=== PATIENT | female | born 1945 | race Caucasian/White ===

== ENCOUNTER 2018-03-08 12:45 | Inpatient (IN) | payer MEDICARE ==
[~2018-03-08] VITALS: Ht 152.4 cm; Wt 51.4 kg
--- NOTE | 2018-03-08 16:40 | NUR ---
RECEIVED PATIENT TO UNIT VIA AMBULANCE FROM [facility], ALERT, CALM, CONFUSED, AMBULATORY, CONTINENT OF B/B. SON, ELIS, ARRIVED [id number] THEREAFTER AND PROVIDED PATIENT'S HX. SON ELIS IS POA. PASSWORD ESTABLISHED "MARJAN". VS OBTAINED AND PATIENT ASSISTED TO DAYROOM. REDNESS NOTED TO BILATERAL ELBOWS AND HIPS. SON STATED THAT REDNESS WAS CAUSED BY PATIENT'S CONSTANT SQUIRMING IN BED AT OTHER FACILITY. SURGICAL INCISIONS NOTED TO MIDLINE OF LOWER ABDOMEN AND BILATERAL SIDES OF ABD. INCISION EDGES WELL-APPROXIMATED AND CLOSED WITH NO DRAINAGE OR S/S INFECTION.
[2018-03-08] MEDS ORDERED: ACETAMINOPHEN325 MG PO (17:47)
[2018-03-08] MEDS ORDERED: DONEPEZIL HCL10 MG PO (17:48)
[2018-03-08] MEDS ORDERED: LOVENOX30 MG/0.3 SC (17:53)
[2018-03-08] MEDS ORDERED: LEXAPRO20 MG PO (17:53)
[2018-03-08] MEDS ORDERED: HALDOL5 MG/ML IM (17:56)
[2018-03-08] MEDS ORDERED: DILAUDID INJ2 MG/ML IV (17:58)
[2018-03-08] MEDS ORDERED: ONDANSETRON4 MG/2 M3 IV (18:01)
[2018-03-08] MEDS ORDERED: ULTRAM50 MG PO (18:04)
[2018-03-08] MEDS ORDERED: ORA RELIEF177 ML PO (18:04)
[2018-03-08 18:20] VITALS: BP 105/66; BMI 22.2
[2018-03-08 20:00] VITALS: BP 140/55
--- NOTE | 2018-03-09 04:48 | NUR ---
B) Patient is alert and oriented to self , restless and agitated, wanders and badgers staff, defiant at times, I) Administered scheduled medications as ordered, redirected as needed, PRN Haldol 2 mg Im given for anxiety at 23:05 R) Mediation compliant, sleeping no in her bed, P) Continue plan of care.
[2018-03-09 07:51] LABS: ALBUMIN 3.3 g/dL (3.4-5.0); ALKALINE PHOSPHATASE 60 U/L (46-116); ALT (SGPT) 32 U/L (10-68); BILIRUBIN - TOTAL 0.46 mg/dL (0.2-1.3); CALC OSMOLALITY 285 mosm/kg (275-300); CALCIUM 8.6 mg/dL (8.5-10.1); CARBON DIOXIDE 23.1 mmol/L (21.0-32.0); CHLORIDE - SERUM 105 mmol/L (98-107); CHOLESTEROL, TOTAL 154 mg/dL (0-200); CREATININE - SERUM 0.7 mg/dL (0.6-1.3); HDL CHOLESTEROL 39 mg/dL (32-96); LDL CHOLESTEROL 88 mg/dL (0-100); LDL-HDL RATIO 2.3 ratio (1.5-3.5); POTASSIUM - SERUM 3.1 mmol/L (3.5-5.1); PROTEIN - SERUM 6.8 g/dL (6.4-8.2); SODIUM 143 mmol/L (136-145); THYROID STIMULATING HORMONE 0.47 uIU/mL (0.36-3.74); TRIGLYCERIDE 136 mg/dL (30-200); UREA NITROGEN 22 mg/dL (7-18); eGFR NON AFRICAN AMERICAN 87 mL/min (90-120)
[2018-03-09 07:51] LABS: EOSINOPHILS 7.1 % (0-7); HEMATOCRIT 40.2 % (36.0-48.0); HEMOGLOBIN 13.5 g/dL (12-16); IMMATURE GRANULOCYTES 1.2 % (0-5); LYMPHOCYTES 26.8 % (15-50); MCH 30.5 pg (26.0-34.0); MCHC 33.6 g/dL (31.0-37.0); MEAN PLATELET VOLUME 9.4 fL (7.4-10.4); MONOCYTES 11.1 % (2-11); NEUTROPHILS 52.8 % (40-80); PLATELET COUNT 380 10x3/uL (130-400); RBC 4.42 10x6/uL (4.00-5.40); RDW 13.1 % (11.5-14.5); WBC 9.2 10x3/uL (4.8-10.8)
[2018-03-09 08:16] LABS: GLUCOSE 69 mg/dL (74-106)
[2018-03-09 08:35] VITALS: BP 138/63
--- NOTE | 2018-03-09 12:27 | NUR ---
B) The patient is awake, she is confused. She knows her name, knows she is in the hospital. She is quiet. She has not tried to elope. I) Provide prescribed meds. Redirect as needed. R) The patient is calm and quiet, she ambulates independently. P) Continue POC.
[2018-03-09 13:50] VITALS: BMI 22.2
[2018-03-09 18:10] LABS: APPEARANCE CLEAR (CLEAR); BILIRUBIN NEGATIVE (NEGATIVE); COLOR YELLOW (YELLOW); GLUCOSE NEGATIVE (NEGATIVE); KETONE SMALL mg/dL (NEGATIVE); NITRITE NEGATIVE (NEGATIVE); PROTEIN NEGATIVE (NEGATIVE); UROBILINOGEN NORMAL (NORMAL)
[2018-03-09 18:11] LABS: BACTERIA FEW /hpf (NONE SEEN); EPITHELIAL CELLS 0-5 /hpf (0-5); RED CELLS - URINE 0-5 /hpf (0-5); WHITE CELLS - URINE 0-5 /hpf (0-5)
[2018-03-09 19:59] VITALS: BP 141/97
--- NOTE | 2018-03-09 21:00 | NUR ---
PATIENT IS VERY RESTLESS, COMES UP TO NURSE'S STATION REPEATEDLY FOR VARIOUS REASONS ( TIME, MAGAZINE, MEDS, HOUSESHOES). TAKES MEDS WELL, NO ADVERSE REACTION NOTED. WILL FOLLOW POC
[2018-03-10 06:13] LABS: VITAMIN D 25 HYDROXY 28.1 ng/mL (30.0-100.0)
[2018-03-10 07:28] LABS: RAPID PLASMA REAGIN Non Reactive (Non Reactive)
--- NOTE | 2018-03-10 07:31 | NUR ---
B) The patient is confused, she is oriented to herself only, she asks "I don't know what is going on, why am I here?" She has poor insight into her situation. She says "This isn't surgery is it?" She ambulates independently, but she needs 24 hour care. I) Provide prescribed meds, reorient her as needed. R) The patient is compliant with meds and unit milieu. P) Continue POC.
[2018-03-10 08:00] VITALS: BP 129/77
--- NOTE | 2018-03-10 08:05 | NUR ---
The patient c/o pain in her back and legs rates her pain 7/10. Tramadol 50 mg PO given.
[2018-03-10 08:17] LABS: FOLATE (FOLIC ACID) - SERUM >20.0 ng/mL (>3.0)
--- NOTE | 2018-03-10 08:30 | NUR ---
The patient says her pain is relieved now.
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
--- NOTE | 2018-03-10 19:50 | NUR ---
PATIENT IS ORIENTED TO SELF ONLY, HAS TO BE REMINDED OF TIME AND REASON FOR BEING HERE. CAN DO ADL'S PER SELF OR WITH VERY LITTLE ASSISTANCE. COMPLIANT WITH MEDS, NO ADVERSE REACTION NOTED. WILL FOLLOW POC
[2018-03-10 21:39] VITALS: BP 119/75
--- NOTE | 2018-03-11 03:20 | NUR ---
PATIENT HAS BEEN UP SEVERAL TIMES, VERY RESTLESS, ARGUMENTATIVE, TEARFUL AND LAUGHING. HALDOL GIVEN IM 2MG TO LEFT DELTOID FOR PSYCOSIS TYPE OF BEHAVIOR.
--- NOTE | 2018-03-11 07:30 | NUR ---
REC'D PT IN HALLWAY SITTING IN CHAIR BY NURSES STATION. ALERT TO SELF ONLY. PT IS VERY CONFUSED WITH POOR INSIGHT. REDIRECT AND REORIENT NEEDED. PRESCRIBED MEDS PROVIDED. MED COMPLIANT. FALL PRECAUTIONS IN PLACE. WILL CONTINUE TO MONITOR Q 15 MINUTES FOR SAFETY. WILL CPOC.
[2018-03-11 07:42] VITALS: BP 127/65
--- NOTE | 2018-03-11 11:54 | PN ---
PATIENT:BRANDI LANDEROS MEDICAL RECORD: [id number] LOCATION:[facility] RogerMarybel112 ADMISSION DATE: 03/08/18 PROGRESS NOTE DATE OF SERVICE: 03/10/2018 SUBJECTIVE: The patient's case was discussed with staff. She has no new complaint. OBJECTIVE: The patient is in good behavioral control. She has limited insight about her condition. She does tolerate her medicines well. ASSESSMENT: No change in diagnoses. PLAN: The patient will be given Namenda to assist with thought disorganization and memory loss. She will be monitored carefully for side effects associated with it. She clearly cannot live alone or independently and given the advanced nature of her dementia, I am going to be recommending 87-brfh-h-day supervision. What is unknown at this point is which environment or setting would be the least restrictive to accomplish this goal. TRANSINT:[id number] Voice Confirmation ID: [id number] DOCUMENT ID: [id number] KASIA DE LA O MD at 1154 CC: [id number] DICTATION DATE: 03/10/18 1224 BEHAVIORAL HEALTH DIRECTOR: 03/10/18 [address] [facility] [address] [place] [id number]
[2018-03-11 21:25] VITALS: BP 111/58
--- NOTE | 2018-03-12 04:34 | NUR ---
PATIENT WAS COOPERATIVE THIS PAST EVENING IN THE DAYROOM, SHE PARTICIPATAED IN GROUP THERAPY, SHE DOES WANT TO "TAKE OVER" AT TIMES HOWEVER AT THE SAME TIME SHE IS HELPFUL WITH THE OTHER RESIDENTS. COMPLIANT WITH MEDS. NO ADVERSE REACTION NOTED. WILL FOLLOW POC
--- NOTE | 2018-03-12 07:30 | NUR ---
REC'D PT IN HALLWAY SOCIALIZING WITH PEERS. AWAKE AND ALERT TO SELF ONLY. REDIRECT AND REORIENT NEEDED. CALM AND COOPERATIVE WITH ASSESSMENT. FALL PRECAUTIONS IN PLACE. PRESCRIBED MEDS PROVIDED. MED COMPLIANT. WILL CONTINUE TO MONITOR Q 15 SAFETY. WILL CPOC.
[2018-03-12 08:11] VITALS: BP 162/85
[2018-03-12 08:19] VITALS: Ht 152.4 cm; Wt 51.4 kg
--- NOTE | 2018-03-12 14:59 | PN ---
PATIENT:BRANDI LANDEROS MEDICAL RECORD: [id number] LOCATION:[facility] Macias112 ADMISSION DATE: 03/08/18 PROGRESS NOTE DATE OF SERVICE: 03/11/2018 SUBJECTIVE: The patient's case was discussed with staff. She has no new complaint. OBJECTIVE: The patient is in good behavioral control with poor insight about her condition. She does tolerate her medicines well. Eye contact is fair. ASSESSMENT: No change in diagnoses. PLAN: Brief supportive and educational interventions were made. The patient is going to require 18-znnb-w-day supervision. TRANSINT:[id number] Voice Confirmation ID: [id number] DOCUMENT ID: [id number] KASIA DE LA O MD at 1459 CC: [id number] DICTATION DATE: 03/11/18 1156 SPECIAL EDUCATION CLASSROOM AIDE: 03/11/18 1232 ADM IN [place] [id number] [place] [address]
[2018-03-12 21:57] VITALS: BP 160/80
--- NOTE | 2018-03-13 04:37 | NUR ---
RECEIVED IN HALLWAY OUTSIDE OF NURSES STATION. WANDERING THROUGH PEARSON. CONFUSED, ANXIOUS, AND INTRUSIVE. COOPERATIVE WITH CARE AND ASSESSMENT. NO DELUSIONAL STATEMENTS MADE. REDIRECT AND REORIENT NEEDED. RESTING IN BED WITH EYES CLOSED AT THIS TIME. CONTINUE PLAN OF CARE.
--- NOTE | 2018-03-13 07:30 | NUR ---
REC'D PT IN HALLWAY WITH PEERS. PT IS VERY DEMANDING AT TIMES. CALM AND COOPERATIVE WITH ASSESSMENT. PT CAN BE VERY INTRUSIVE AT TIMES. REDIRECT AND REORIENT NEEDED. PRESCRIBED MEDS PROVIDED. MED COMPLIANT. FALL PRECAUTIONS IN PLACE. WILL CONTINUE TO MONITOR Q 15 MINUTES FOR SAFETY. WILL CPOC.
[2018-03-13 08:04] VITALS: BP 138/82
--- NOTE | 2018-03-13 10:43 | NUR ---
PATIENT HAS DIFFICULTY REMAINING SEATED DURING GROUP ACTIVITY, PREFERRING TO PACE ABOUT ROOM AND ATTEMPTING TO EXIT DAYROOM.
--- NOTE | 2018-03-13 11:07 | NUR ---
Haldol oral solution 2 mg admin PO for anxiety/agitation, tolerated well.
--- NOTE | 2018-03-13 13:57 | PN ---
PATIENT:BRANDI LANDEROS MEDICAL RECORD: [id number] LOCATION:[facility] Macias112 ADMISSION DATE: 03/08/18 PROGRESS NOTE DATE OF SERVICE: 03/12/2018 SUBJECTIVE: The patient's case was discussed with staff. She has no new complaint. OBJECTIVE: The patient has fairly limited insight about her situation. She is tolerating her medicines well. ASSESSMENT: No change in diagnoses. PLAN: The patient is going to have her Namenda increased to 5 mg twice daily. Her long-term prognosis is guarded. She clearly is in need of 58-prpt-s-day supervision. There is 0 evidence that swallowing the tack had anything to do with suicide or depression or anything like that. She was just confused. She does not remember having swallowed it. In fact, she does not even remember having surgery to remove it. TRANSINT:[id number] Voice Confirmation ID: [id number] DOCUMENT ID: [id number] KASIA DE LA O MD at 1357 CC: [id number] DICTATION DATE: 03/12/18 1645 PETROLEUM TERMINAL PLANT OPERATOR: 03/12/18 2230 ADM IN [place] [address] [place] [id number]
[2018-03-13 20:00] VITALS: BP 147/73
--- NOTE | 2018-03-14 01:00 | NUR ---
RECEIVED IN DAYROOM. SITTING ON COUCH WITH PEERS AT HER SIDE. CALM AND COOPERATIVE WITH CARE AND ASSESSMENT. NO DELUSIONAL STATEMENTS MADE. REDIRECT AND REORIENT NEEDED. RESTING IN BED WITH EYES CLOSED AT THIS TIME. CONTINUE PLAN OF CARE.
--- NOTE | 2018-03-14 07:30 | NUR ---
REC'D PT IN HALLWAY SOCILAIZING WITH PEERS. AWAKE AND ALERT WITH CONFUSION NOTED. CALM AND COOPERATIVE WITH ASSESSMENT. REDIRECT AND REORIENT NEEDED. PRESCRIBED MEDS PROVIDED. MED COMPLIANT. FALL PRECAUTIONS IN PLACE. WILL CONTINUE TO MONITOR Q 15 MINUTES FOR SAFETY. WILL CPOC.
--- NOTE | 2018-03-14 10:01 | NUR ---
Nutrition Follow Up: Chart reviewed. Pt is eating 83% meal avg on a regular diet. +BM 03/13/18. Wt stable. Meds and labs reviewed. Pt continues at low nutritional risk. RD following.
[2018-03-14 11:41] VITALS: BP 150/80
--- NOTE | 2018-03-14 16:05 | PN ---
PATIENT:BRANDI LANDEROS MEDICAL RECORD: [id number] LOCATION:[facility] RogerMarybel112 ADMISSION DATE: 03/08/18 PROGRESS NOTE DATE OF SERVICE: 03/13/2018 SUBJECTIVE: The patient's case was discussed with staff. She has no new complaint. OBJECTIVE: The patient did not sleep well last night. She apparently has had an ongoing longstanding problem with this. She denies any intent to harm herself. She is clearly very confused and does not understand her situation well at all. ASSESSMENT: No change in diagnoses. PLAN: The patient is going to be given trazodone to assist with sleep consolidation. She will be monitored for clinical changes associated with its use. Her long-term prognosis is guarded. TRANSINT:[id number] Voice Confirmation ID: [id number] DOCUMENT ID: [id number] KASIA DE LA O MD at 1605 CC: [id number] DICTATION DATE: 03/13/18 1412 MANAGER OF INTERNAL: 03/13/18 1430 ADM IN [place] [id number] [place] [id number]
[2018-03-14 20:49] VITALS: BP 164/82
--- NOTE | 2018-03-15 02:00 | NUR ---
RECEIVED IN PATIENT ROOM. GETTING READY FOR BED. CALM AND COOPERATIVE WITH CARE AND ASSESSMENT. NO DELUSIONAL STATEMENTS MADE. NO INTRUSIVE BEHAVIOR. REDIRECT AND REORIENT NEEDED. RESTING IN BED WITH EYES CLOSED AT THIS TIME. CONTINUE PLAN OF CARE.
[2018-03-15 08:08] VITALS: BP 129/80
--- NOTE | 2018-03-15 11:32 | NUR ---
PT IS CALM, COOPERATIVE WITH CARE. PT DID GET A TRAMADOL AT 0744 FOR RIGHT HIP PAIN AND WHEN REASSESSED SHE STATED THAT THE PAIN WAS BETTER 7/10. PT CONTINUES TO BE CONFUSED BUT EASY TO REDIRECT. MEDICATIONS GIVEN ORDERED. WILL CONTINUE TO MONITOR AND CONTINUE WITH PLAN OF CARE.
--- NOTE | 2018-03-15 16:45 | PN ---
PATIENT:BRANDI LANDEROS MEDICAL RECORD: [id number] LOCATION:[facility] Macias112 ADMISSION DATE: 03/08/18 PROGRESS NOTE DATE OF SERVICE: 03/14/2018 SUBJECTIVE: The patient's case was discussed with staff. She has no new complaint. OBJECTIVE: The patient is sleeping much better with the addition of the trazodone. She is tolerating her other medicines well. There has not been any significant behavior outbursts today. She is clearly going to need 54-erwn-c-day supervision and arrangements are being sought for long-term placement. TRANSINT:[id number] Voice Confirmation ID: [id number] DOCUMENT ID: [id number] KASIA DE LA O MD at 1645 CC: [id number] DICTATION DATE: 03/14/18 1726 COPYIST: 03/15/18 0158 ADM IN [place] [address] [place] [id number]
[2018-03-15 21:21] VITALS: BP 130/64
--- NOTE | 2018-03-16 04:13 | NUR ---
B) Patient is alert and oriented to person and being [facility], intrusive with staff at times, restless and wanders at times, I) Administered scheduled medications as ordered, redirected as needed, R) Mediation compliant, sleeping quietly now, P) Continue plan of care.
--- NOTE | 2018-03-16 14:26 | NUR ---
RIVKA MET WITH PT'S SON TO DISCUSS DISCHARGE PLANNING. HE VERBALIZED UNDERSTANDING. REFERRAL WAS MADE TO [facility] AND THEY ARE AWAITING NOTES THAT DEMONSTRATE PT'S STABILIZATION. [facility] REQUESTED [facility]. [facility] SENT. LATE ENTRY FROM 03/15/2018
--- NOTE | 2018-03-16 14:42 | NUR ---
IS ORIENTED TO SELF ,HOSPITAL AND DATE.COMPLIANT WITH MEDS AND STAFF.INTRUSIVE BUT TRIES TO BE HELPFUL WITH PEERS.WILL CONTINUE WITH PLAN OF CARE.MONITOR FOR CHANGES AND SAFETY.
[2018-03-16 15:43] VITALS: BP 108/58
[2018-03-16 19:58] VITALS: BP 131/47
--- NOTE | 2018-03-17 03:51 | NUR ---
B) Patient is alert and oriented to person and place, needy and attention seeking at times, intrusive with staff. I) Administered scheduled medications as ordered, monitored for safety R) Mediation compliant, sleeping quietly in her bed, P) Continue plan of care.
--- NOTE | 2018-03-17 07:55 | NUR ---
PT IS CALM, COOPERATIVE. C/O RIGHT HIP 10/10 ON A 0-10 SCALE. MEDICATIONS GIVEN ORDERED. FALL PRECAUTIONS MAINTAINED. WILL CONTINUE TO MONITOR AND CONTINUE WITH PLAN OF CARE.
[2018-03-17 08:09] VITALS: BP 135/84
--- NOTE | 2018-03-17 12:41 | PN ---
PATIENT:BRANDI LANDEROS MEDICAL RECORD: [id number] LOCATION:DEB[facility]AH[facility]le Macias112 ADMISSION DATE: 03/08/18 PROGRESS NOTE DATE OF SERVICE: 03/16/2018 SUBJECTIVE: The patient's case was discussed with staff. She has no new complaint. OBJECTIVE: The patient is confused, but has not been agitated. I talked to her about not going home and she was minimally receptive to it, but did engage me in conversation. The plan is for her to go to the [facility]. She simply cannot live alone and this is going to be the least restrictive environment. I think, given a few days, I can work with her and hopefully get her to agree that this is at least the best course that is open to us. TRANSINT:[id number] Voice Confirmation ID: [id number] DOCUMENT ID: [id number] KASIA DE LA O MD at 1241 CC: [id number] DICTATION DATE: 03/16/18 1614 SUBCONTRACT ADMINISTRATOR: 03/16/18 1850 ADM IN [place] [id number] [place] [address]
--- NOTE | 2018-03-17 12:41 | PN ---
PATIENT:BRANDI LANDEROS MEDICAL RECORD: [id number] LOCATION:[facility] Macias112 ADMISSION DATE: 03/08/18 PROGRESS NOTE DATE OF SERVICE: 03/15/2018 SUBJECTIVE: The patient's case was discussed with staff. She has no new complaint. OBJECTIVE: The patient is in good behavioral control and tolerates her medicines well. ASSESSMENT: No change in diagnoses. PLAN: Current medicines have been reviewed. She is sleeping reasonably well. She will have her Namenda maintained at its current dose for the time being. TRANSINT:[id number] Voice Confirmation ID: [id number] DOCUMENT ID: [id number] KASIA DE LA O MD at 1241 CC: [id number] DICTATION DATE: 03/15/18 1800 PERITONEAL DIALYSIS REGISTERED NURSE: 03/16/18 0058 ADM IN [place] [address] [place] [address]
--- NOTE | 2018-03-17 19:59 | NUR ---
PATIENT IS VERY INTRUSIVE, VERY NEEDY, COMPLIANT WITH MEDS, NO ADVERSE REACTION NOTED. WILL FOLLOW POC
[2018-03-17 20:00] VITALS: BP 112/50
--- NOTE | 2018-03-18 07:30 | NUR ---
REC'D PT IN HALLWAY STANDING BY THE NURSES STATION. ALERT WITH CONFUSION NOTED. CALM AND COOPERATIVE WITH ASSESSMENT. REDIRECT AND REORIENT NEEDED. PRESCRIBED MEDS PROVIVED. MED COMPLIANT. FALL PRECAUTIONS IN PLACE. WILL CONTINUE TO MONITOR Q 15 MINUTES FOR SAFETY. WILL CPOC.
[2018-03-18 08:26] VITALS: BP 116/70
--- NOTE | 2018-03-18 12:51 | PN ---
PATIENT:BRANDI LANDEROS MEDICAL RECORD: [id number] LOCATION:DEB[facility]AH[facility]le KanaMarybel112 ADMISSION DATE: 03/08/18 PROGRESS NOTE DATE OF SERVICE: 03/17/2018 SUBJECTIVE: The patient's case was discussed with staff. She has no new complaint. OBJECTIVE: The patient is in good behavioral control. She has limited insight about her condition. She tolerates her medicines well. ASSESSMENT: No change in diagnoses. PLAN: I anticipate the patient can be transitioned out of the hospital soon if this level of improvement is maintained. Her long-term prognosis is guarded. TRANSINT:[id number] Voice Confirmation ID: [id number] DOCUMENT ID: [id number] KASIA DE LA O MD at 1251 CC: [id number] DICTATION DATE: 03/17/18 1248 COOLER WORKER: 03/17/18 1448 ADM IN [place] [id number] [place] [address]
[2018-03-18 20:00] VITALS: BP 128/53
--- NOTE | 2018-03-18 21:20 | NUR ---
PATIENT PACES A LOT, VERY INTRUSIVE WITH STAFF AND OTHER RESIDENTS, VERY NEEDY, A LOT OF NERVOUS ENERGY, COMPLIANT WITH MEDS, NO ADVERSE REACTIONS NOTED. WILL FOLLOW POC
--- NOTE | 2018-03-19 07:30 | NUR ---
REC'D PT IN THE HALLWAY WITH PEERS. AWAKE AND ALERT TO SELF WITH CONFUSION NOTED. CALM AND COOPERATIVE WITH ASSESSMENT. REDIRECT AND REORIENT NEEDED. PT PACES DURING THE SHIFT. PT STATES " I AM JUST RESTLESS." PRESCRIBED MEDS PROVIDED. MED COMPLIANT. FALL PRECAUTIONS IN PLACE. WILL CONTINUE TO MONITOR Q 15 MINUTES FOR SAFETY. WILL CPOC.
--- NOTE | 2018-03-19 15:53 | PN ---
PATIENT:BRANDI LANDEROS MEDICAL RECORD: [id number] LOCATION:[facility]ias112 ADMISSION DATE: 03/08/18 PROGRESS NOTE DATE OF SERVICE: 03/18/2018 SUBJECTIVE: The patient's case was discussed with staff. She has no new complaint. OBJECTIVE: The patient did not sleep well last night. I am going to increase the dose of her trazodone slightly. Her long-term prognosis is guarded. Supportive and educational interventions were made. TRANSINT:[id number] Voice Confirmation ID: [id number] DOCUMENT ID: [id number] KASIA DE LA O MD at 1553 CC: [id number] DICTATION DATE: 03/18/18 1257 LEARNING AND DEVELOPMENT ADMINISTRATOR: 03/18/18 1759 ADM IN [place] [address] [place] [address]
[2018-03-19 20:27] VITALS: BP 137/56
--- NOTE | 2018-03-20 02:46 | NUR ---
B) Patient is alert and oriented to person and place, restless and intrusive at times, I) Administered scheduled medications as ordered, monitored for safety R) Mediation compliant, calm and cooperative this shift, P) Continue plan of care.
--- NOTE | 2018-03-20 07:30 | NUR ---
REC'D PT IN HALLWAY SOCIALIZING WITH PEERS. AWAKE AND ALERT WITH CONFUSION NOTED. CALM AND COOPERATIVE WITH ASSESSMENT. REDIRECT AND REORIENT NEEDED. PRESCRIBED MEDS PROVIDED. MED COMPLIANT. FALL PRECAUTIONS IN PLACE. WILL CONTINUE TO MONITOR Q 15 MINUTES FOR SAFETY. WILL CONTINUE PLAN OF CARE.
[2018-03-20 08:30] VITALS: BP 119/67
--- NOTE | 2018-03-20 12:43 | NUR ---
Nutrition Follow Up: Chart reviewed. Pt is eating 74% meal avg on a regular diet. +BM 03/19/18. Meds and labs reviewed. Pt continues at low nutritional risk at this time. RD following.
--- NOTE | 2018-03-20 15:32 | PN ---
PATIENT:BRANDI LANDEROS MEDICAL RECORD: [id number] LOCATION:[facility] Macias112 ADMISSION DATE: 03/08/18 PROGRESS NOTE DATE OF SERVICE: 03/19/2018 SUBJECTIVE: The patient's case was discussed with staff. She has no new complaint. OBJECTIVE: The patient is in good behavioral control with poor insight about her condition. She does tolerate her medicines well. ASSESSMENT: No change in diagnoses. PLAN: Current medicines and therapies have been reviewed and will be maintained. Long-term prognosis is guarded. TRANSINT:[id number] Voice Confirmation ID: [id number] DOCUMENT ID: [id number] KASIA DE LA O MD at 1532 CC: [id number] DICTATION DATE: 03/19/18 170 C IRON WORKER: 03/19/18 1809 ADM IN [place] [address] [place] [address]
[2018-03-20 21:16] VITALS: BP 122/58
--- NOTE | 2018-03-21 02:41 | NUR ---
B) PATIENT IS ALERT AND ORIENTED TO PERSON AND HOSPITAL. CALM AND COOPERATIVE. I) ADMINISTERED SCHEDULED MEDICATIONS ORDERED, REDIRECT NEEDED. R) MEDICATION COMPLIANT, SLEEPING QUIETLY IN BED. P) MONITOR FOR BEHAVIORAL CHANGES AND CONTINUE PLAN OF CARE.
[2018-03-21 08:08] VITALS: BP 131/75
[2018-03-21] MEDS ORDERED: Aricept PO (08:46)
[2018-03-21] MEDS ORDERED: VOLTAREN75 MG PO (08:47)
[2018-03-21] MEDS ORDERED: NAMENDA5 MG PO (08:48)
[2018-03-21] MEDS ORDERED: TRAZODONE HCL150 MG PO (08:48)
[2018-03-21] MEDS ORDERED: SENNA8.6 MG PO (08:49)
[2018-03-21] MEDS ORDERED: FLORAJEN3 CAPS460 MG PO (08:49)
[2018-03-21] MEDS ORDERED: PROTONIX40 MG PO (08:49)
[2018-03-21] MEDS ORDERED: LIDODERM 5 %1 PATCH TRANSDERM (08:50)
[2018-03-21] MEDS ORDERED: VITAMIN D5000 UNIT PO (08:50)
--- NOTE | 2018-03-21 11:35 | NUR ---
B) PT IS ALERT AND ORIENTED TO PERSON AND HOSPITAL. CALM AND COOPERATIVE WITH ASSESSMENT. I) ADMINISTERED SCHEDULED MEDICATIONS ORDERED, REDIRECT NEEDED. R) MEDICATION COMPLIANT P) WILL CONTINUE TO MONITOR Q 15 MINUTES FOR SAFETY.
--- NOTE | 2018-03-21 15:23 | PN ---
PATIENT:BRANDI LANDEROS MEDICAL RECORD: [id number] LOCATION:AL[facility] Macias112 ADMISSION DATE: 03/08/18 PROGRESS NOTE DATE OF SERVICE: 03/20/2018 SUBJECTIVE: The patient's case was discussed with staff. She has no new complaint. OBJECTIVE: The patient is in good behavioral control with poor insight about her condition. She tolerates her medicines well. ASSESSMENT: No change in diagnoses. PLAN: Current medicines have been reviewed and will be maintained. Long-term prognosis is guarded. TRANSINT:[id number] Voice Confirmation ID: [id number] DOCUMENT ID: [id number] KASIA DE LA O MD at 1523 CC: [id number] DICTATION DATE: 03/20/18 1620 ACUTE COORDINATOR: 03/20/182035 ADM IN [place] [id number] [place] [address]
--- NOTE | 2018-03-21 16:30 | NUR ---
PT DISCHARGED TO [facility]. DISCHARGE PAPERWORK FAXED AND COPY SENT WITH SUPERVISOR PACKING . PT IN STABLE CONDITION AT TIME OF TRANSFER. NO S/SX OF DISTRESS NOTED OR VOICED. REPORT GIVEN TO HERACLIO DAVIS.
--- NOTE | 2018-03-22 15:20 | PN ---
PATIENT:BRANDI LANDEROS MEDICAL RECORD: [id number] [facility] ADMISSION DATE: 03/08/18 PROGRESS NOTE DATE OF SERVICE: 03/21/2018 SUBJECTIVE: The patient's case was discussed with staff. She has no new complaint. OBJECTIVE: The patient is tolerating her medicines well. She has pretty limited insight about her condition, but she is not openly aggressive or unmanageable in any significant manner. ASSESSMENT: No change in diagnoses. PLAN: Current medicines will be maintained. I anticipate the patient can be transitioned out of the hospital soon. Arrangements are being made for her to go to a local [facility]. TRANSINT:[id number] Voice Confirmation ID: [id number] DOCUMENT ID: [id number] KASIA DE LA O MD at 1520 CC: [id number] DICTATION DATE: 03/21/18 1554 INSPECTOR EYEGLASS FRAMES: 03/21/18 2304 DIS IN 03/21/18 [facility] [address] [place] [address]
--- NOTE | 2018-03-29 15:50 | DS ---
PATIENT:BRANDI LANDEROS :45 MEDICAL RECORD: [id number] DISCHARGE SUMMARY ADMISSION DATE: 03/08/18 DISCHARGE DATE: 03/21/18 IDENTIFYING DATA: The patient is 72 years old and she was admitted to the hospital on a voluntary basis because of confusion and agitation. The patient has a known history of dementia and was actually hospitalized at [facility] because she had swallowed a thumbtack. Apparently, the thumbtack had become lodged in her cecum and had to be surgically extracted. The patient was not trying to harm herself or doing this for any reason other than the fact that she has an advanced dementia, is confused and it is really unknown why she swallowed a thumbtack, but she cannot tell us this and apparently it was just something done by a confused, demented person and had nothing to do with any kind of self-harm or bizarre attention seeking behavior. The patient in addition to being confused though did endorse a number of depressive symptoms, but clearly had no psychotic symptoms and was not acutely dangerous in any way. I also do not think she had a major depressive illness. HOSPITAL COURSE: The patient was admitted to the hospital and fully evaluated from both a medical, psychological, and social standpoint. It was clear that she had an advanced dementia. She was given some medications to assist with her mood stability and the medication was also given for its memory enhancing properties. The patient was subsequently transitioned out of the hospital and arrangements were made for her to have 20-fdni-j-day supervision. DISCHARGE DIAGNOSES: AXIS I: Senile dementia of the Alzheimer's type with behavioral disturbances. AXIS II: None. AXIS III: Status post surgery secondary to a foreign body ingestion, osteoarthritis. AXIS IV: Moderate. AXIS V: Global assessment of functioning is 35. PLAN: At the time of discharge, the patient was not acutely dangerous. She poses no risk to herself or her caregivers. Followup is to be with her primary care physician. TRANSINT:[id number] Voice Confirmation ID: [id number] DOCUMENT ID: [id number] KASIA DE LA O MD at 1550 CC: [id number] DICTATION DATE: 03/27/18 1608 GAS TECHNICIAN: 03/28/18 0430 DIS IN 03/21/18 [facility] [address] [place] [address]
== END 2018-03-21 16:30 | DRG 57 ==
LOC: D.PSYCH 12:45
PROVIDERS: ADMIT Psychiatry & Neurology Psychiatry
DX: G30.1 Alzheimer's disease with late onset (principal); F02.81 Dementia in other diseases classified elsewhere, unspecified severity, with behavioral disturbance; N39.0 Urinary tract infection, site not specified; F41.8 Other specified anxiety disorders; M19.90 Unspecified osteoarthritis, unspecified site; E55.9 Vitamin D deficiency, unspecified; K29.90 Gastroduodenitis, unspecified, without bleeding